=== PATIENT | male | born 1960 | race Caucasian/White ===

== ENCOUNTER 2020-08-11 02:56 | Emergency (ER) | payer OTHER, MEDICARE ==
[~2020-08-11 02:56] MED LIST: ASPIRIN CHEWABL81 MG PO; CARDURA8 MG PO; CBD OIL PO; CETIRIZINE HCL10 M1 PO; CHLORTHALIDONE50 MG PO; FLEXERIL10 MG PO; HYDROCODON-ACE1 EAC6 PO; K-DUR20 MEQ PO; LIPITOR 10MG TA10 MG PO; METFORMIN HCL500 MG PO; TOPROL XL 25MG25 MG PO
[2020-08-11 03:49] LABS: BASOPHIL 0.4 % (0-2); EOSINOPHIL 1.6 % (0-5); HCT 43.9 % (42.0-52.0); HGB 14.8 g/dl (13.2-18.0); LYMPHOCYTE 22.2 % (15-48); MCH 31.1 pg (25.0-31.0); MCHC 33.7 g/dL (32.0-36.0); MCV 92.2 fL (78.0-100.0); MONOCYTE 6.4 % (0-12); MPV 10.1 fL (6.0-9.5); NRBC 0; PLT 237 K/uL (150-400); RBC 4.76 M/uL (4.70-6.00); RDW 13.4 % (11.5-14.0); WBC 10.3 K/uL (4.0-10.5)
[2020-08-11 04:10] LABS: ALBUMIN 3.8 g/dL (3.4-5.0); BILIRUBIN - TOTAL 0.2 mg/dL (0.2-1.0); BUN/CREAT RATIO (CALC) 25.5 RATIO; CREATININE 1.1 mg/dL (0.67-1.17); GLOBULIN (CALCULATION) 3.6 g/dL; POTASSIUM 3.3 mmol/L (3.5-5.1); TOTAL PROTEIN 7.4 g/dL (6.4-8.2)
[2020-08-11 06:16] LABS: BILIRUBIN NEGATIVE (NEGATIVE); BLOOD 3+ Ery/uL (NEGATIVE); CLARITY CLEAR (CLEAR); COLOR YELLOW (YELLOW); GLUCOSE (U) NORMAL (NORMAL); LEUKOCYTES NEGATIVE Leu/uL (NEGATIVE); NITRITE NEGATIVE (NEGATIVE); PROTEIN NEGATIVE (NEGATIVE); SPECIFIC GRAVITY 1.025 (1.001-1.030); UROBILINOGEN 0.2 mg/dL (0.2-1.0)
[2020-08-11 06:23] LABS: URINARY RBC 20-50
[2020-08-11 06:34] LABS: CALCIUM OXALATE CRYSTALS MODERATE
[2020-08-11 06:35] LABS: SQUAMOUS EPITHELIAL CELLS RARE; URINARY WBC RARE
[2020-08-11] MEDS ORDERED: KETOROLAC TROME10 MG PO (07:34)
[2020-08-11] MEDS ORDERED: FLOMAX0.4 MG PO (07:34)
[2020-08-11] MEDS ORDERED: PERCOCET 7.5/321 TAB PO (07:34)
== END 2020-08-11 07:48 | disposition home or self-care (01) ==
LOC: FER 02:56
PROVIDERS: Emergency Medicine Emergency Medical Services
DX: N13.2 Hydronephrosis with renal and ureteral calculous obstruction (principal); E11.9 Type 2 diabetes mellitus without complications; I10 Essential (primary) hypertension; Z91.018 Allergy to other foods
CPT/HCPCS: 36415; 80053; 81001; 85025; J1170; J1885; J2270; J2405; J7030

== ENCOUNTER → 2021-03-29 | Day surgery (SDC) | payer OTHER, MEDICARE ==
[~2021-03-29] VITALS: Ht 188 cm; Wt 122.5 kg
[~2021-03-29] MED LIST changes: +FLOMAX0.4 MG PO; +IRON325 M1 PO; +KETOROLAC TROME10 MG PO; +MOBIC7.5 MG PO; +ONE DAILY COMP1 EAC1 PO; +PERCOCET 7.5/321 TAB PO; +PROSCAR5 MG PO; +VITAMIN D350 MC4 PO
== END | disposition home or self-care (01) ==
LOC: FAS 11:28
DX: Z12.11 Encounter for screening for malignant neoplasm of colon (principal); D12.3 Benign neoplasm of transverse colon; I10 Essential (primary) hypertension; E11.9 Type 2 diabetes mellitus without complications; M19.90 Unspecified osteoarthritis, unspecified site; G47.30 Sleep apnea, unspecified; Z79.82 Long term (current) use of aspirin; Z79.899 Other long term (current) drug therapy; Z79.84 Long term (current) use of oral hypoglycemic drugs; Z72.89 Other problems related to lifestyle
CPT/HCPCS: 82962; J1610; J2250; J2704; J7120